=== PATIENT | female | born 1975 | race Caucasian/White ===

== ENCOUNTER 2020-03-26 08:38 | Emergency (ER) | payer BC, OTHER ==
[2020-03-26] MEDS ORDERED: TORADOL 10 MG T10 MG PO (10:56)
[2020-03-26] MEDS ORDERED: CYCLOBENZAPRINE5 MG PO (10:56)
== END 2020-03-26 11:11 | disposition home or self-care (01) ==
LOC: ER1 08:38
DX: U07.1 COVID-19 (principal); S16.1XXA Strain of muscle, fascia and tendon at neck level, initial encounter; S29.012A Strain of muscle and tendon of back wall of thorax, initial encounter; S39.012A Strain of muscle, fascia and tendon of lower back, initial encounter; I10 Essential (primary) hypertension; E03.9 Hypothyroidism, unspecified; Z87.39 Personal history of other diseases of the musculoskeletal system and connective tissue; Z79.899 Other long term (current) drug therapy; Z88.5 Allergy status to narcotic agent; X58.XXXA Exposure to other specified factors, initial encounter
CPT/HCPCS: 71046; 72100; 87081; 87880; 96372; 99283; J1100; J1885; U0003

== ENCOUNTER → 2020-06-16 | Outpatient (CLI) | payer BC, OTHER ==
[~2020-06-16] MED LIST: CYCLOBENZAPRINE5 MG PO; TORADOL 10 MG T10 MG PO
== END ==
LOC: KOH-I 15:54
DX: M50.90 Cervical disc disorder, unspecified, unspecified cervical region (principal); M54.12 Radiculopathy, cervical region; R29.2 Abnormal reflex; M50.21 Other cervical disc displacement, high cervical region
CPT/HCPCS: 72141

== ENCOUNTER → 2020-07-21 | Outpatient (CLI) | payer BC, OTHER | LOC: KOH-I 07-20 11:00 | DX: J32.9 Chronic sinusitis, unspecified (principal) | CPT/HCPCS: 70486 ==

== ENCOUNTER → 2020-08-28 | Outpatient (CLI) | payer BC, OTHER ==
[2020-08-28 12:10] LABS: BUN/CREATININE RATIO 12 (0-10)
== END ==
LOC: RAD 11:24
PROVIDERS: Physician Assistant
DX: R06.02 Shortness of breath (principal); R60.9 Edema, unspecified
CPT/HCPCS: 36415; 71046; 80048; 85379

== ENCOUNTER → 2021-07-06 | Outpatient (CLI) | payer BC | LOC: MRI 06-25 11:00 | DX: H90.42 Sensorineural hearing loss, unilateral, left ear, with unrestricted hearing on the contralateral side (principal) | CPT/HCPCS: 70553; A9577 ==

== ENCOUNTER → 2021-07-16 | Outpatient (CLI) | payer BC | LOC: KOH-I 16:12 | DX: M54.50 Low back pain, unspecified (principal) | CPT/HCPCS: 72110 ==